=== PATIENT | female | born 1990 | race Caucasian/White ===

== ENCOUNTER 2018-07-08 16:42 | Emergency (ER) | payer OTHER, SELFPAY ==
[2018-07-08 17:17] LABS: BHCG - Serum POSITIVE (NEGATIVE); Pregs Control Bar Appear? YES (CONTROL BAR)
[2018-07-08 17:21] LABS: Prothrombin Time 13.5 SEC (12.0-14.7)
[2018-07-08] MEDS ORDERED: Cyclopentolate 1% Opth Drop 2 ML BOT ONE (17:22)
[2018-07-08 17:29] LABS: ALT (SGPT) 18 U/L (8-55); AST (SGOT) 15 U/L (5-34); Albumin 4.2 g/dL (3.5-5.0); Alkaline Phosphatase 74 U/L (40-150); Anion Gap 13 mmol/L (10-20); BUN (Urea Nitrogen) 11 mg/dL (7.0-18.7); Bilirubin, Total 0.2 mg/dL (0.2-1.2); Calc. Creatinine Clearance 0 mL/min (70-130); Calcium 9.6 mg/dL (7.8-10.44); Carbon Dioxide 21 mmol/L (22-29); Chloride 109 mmol/L (98-107); Estimated GFR-MDRD Greater than 90; Globulin 3.1 g/dL (2.4-3.5); Glucose 100 mg/dL (70-105); Potassium 3.7 mmol/L (3.5-5.1); Protein, Total 7.3 g/dL (6.0-8.3); Sodium 139 mmol/L (136-145)
[2018-07-08 17:33] LABS: #Basophils 0.1 thou/uL (0.0-0.2); #Eosinphils 0.2 thou/uL (0.0-0.7); #Lymphocytes 3.1 thou/uL (1.20-3.40); #Monocytes 0.8 thou/uL (0.11-0.59); #Neutrophils 8.2 thou/uL (1.40-6.50); %Basophils 0.8 % (0.0-1.0); %Eosinophils 1.7 % (0.0-10.0); %Lymphocytes 24.9 % (21.0-51.0); %Monocytes 6.4 % (0.0-10.0); %Neutrophils 66.1 % (42.0-75.0); Hemoglobin 13.6 g/dL (12.0-16.0); Mean Corpuscular HGB CONC 31.9 g/dL (32.0-36.0); Mean Corpuscular Hemoglobin 27.4 pg (27.0-31.0); Mean Corpuscular Volume 85.9 fL (78.0-98.0); Mean Platelet Volume 7.7 fL (7.4-10.4); Platelet Count 316 thou/uL (130-400); RBC Distribution Width 12.3 % (11.5-14.5); Red Blood Cell (RBC) Count 4.95 mill/uL (4.20-5.40); White Blood Cell (WBC) Count 12.4 thou/uL (4.8-10.8)
--- NOTE | 2018-07-08 20:17 | CT ---
CT OF THE BRAIN WITHOUT CONTRAST: 07/08/18 COMPARISON: None. HISTORY: Blurry vision after waking up from a nap. Dizziness and generalized weakness. Pain behind the eyes. TECHNIQUE: Multiple contiguous axial images were obtained in a CT of the brain without contrast. FINDINGS: The brain is normal in morphology and attenuation without focal lesions or confluent areas of infarct ion. There is no evidence of hydrocephalus, intracranial hemorrhage or extra-axial fluid collections. The calvarium and overlying soft tissues are unremarkable. The visualized paranasal sinuses and masto id air cells are well aerated. IMPRESSION: No evidence of acute intracranial abnormality. POS: [facility]
== END 2018-07-08 19:00 | disposition home or self-care (01) ==
LOC: NAV ERS 16:42
DX: H53.8 Other visual disturbances (principal); F90.9 Attention-deficit hyperactivity disorder, unspecified type
CPT/HCPCS: 36416; 70450; 80053; 84702; 84703; 85025; 85610; 86140; 93005; 94760

== ENCOUNTER 2018-12-17 18:55 | Emergency (ER) | payer OTHER, SELFPAY | END 2018-12-17 19:45 | disposition left against medical advice (07) | LOC: NAV ERS 18:55 | DX: O99.89 Other specified diseases and conditions complicating pregnancy, childbirth and the puerperium (principal); R10.30 Lower abdominal pain, unspecified; O99.342 Other mental disorders complicating pregnancy, second trimester; F90.9 Attention-deficit hyperactivity disorder, unspecified type; Z3A.27 27 weeks gestation of pregnancy ==

== ENCOUNTER 2019-03-29 11:59 | Emergency (ER) | payer MEDICAID, OTHER ==
[2019-03-29] MEDS ORDERED: Ondansetron PF 4 MG/2 ML Vial ONE (12:27)
[2019-03-29 12:31] LABS: #Basophils 0.1 thou/uL (0.0-0.2); #Eosinphils 0.2 thou/uL (0.0-0.7); #Lymphocytes 2.6 thou/uL (1.20-3.40); #Monocytes 0.5 thou/uL (0.11-0.59); #Neutrophils 6.9 thou/uL (1.40-6.50); %Basophils 0.9 % (0.0-1.0); %Eosinophils 1.8 % (0.0-10.0); %Lymphocytes 25.4 % (21.0-51.0); %Monocytes 4.6 % (0.0-10.0); %Neutrophils 67.4 % (42.0-75.0); Hemoglobin 13.5 g/dL (12.0-16.0); Mean Corpuscular HGB CONC 30.6 g/dL (32.0-36.0); Mean Corpuscular Hemoglobin 25.3 pg (27.0-31.0); Mean Corpuscular Volume 82.9 fL (78.0-98.0); Mean Platelet Volume 7.7 fL (7.4-10.4); Platelet Count 333 thou/uL (130-400); RBC Distribution Width 13.4 % (11.5-14.5); Red Blood Cell (RBC) Count 5.34 mill/uL (4.20-5.40); White Blood Cell (WBC) Count 10.3 thou/uL (4.8-10.8)
[2019-03-29 12:47] LABS: ALT (SGPT) 18 U/L (8-55); AST (SGOT) 18 U/L (5-34); Albumin 4.3 g/dL (3.5-5.0); Alkaline Phosphatase 104 U/L (40-150); Anion Gap 18 mmol/L (10-20); BUN (Urea Nitrogen) 13 mg/dL (7.0-18.7); Bilirubin, Total 0.3 mg/dL (0.2-1.2); Calc. Creatinine Clearance 0 mL/min (70-130); Calcium 9.8 mg/dL (7.8-10.44); Carbon Dioxide 23 mmol/L (22-29); Chloride 103 mmol/L (98-107); Estimated GFR-MDRD Greater than 90; Globulin 3.3 g/dL (2.4-3.5); Glucose 97 mg/dL (70-105); Lipase 40 U/L (8-78); Magnesium 2.1 mg/dL (1.6-2.6); Potassium 3.8 mmol/L (3.5-5.1); Protein, Total 7.6 g/dL (6.0-8.3); Sodium 140 mmol/L (136-145)
--- NOTE | 2019-03-29 13:09 | RAD ---
TWO VIEWS CHEST: 03/29/19 COMPARISON: None. HISTORY: Chest pain. FINDINGS: There is no pneumothorax or pleural fluid and no focal consolidation or alveolar edema. Heart and med iastinal contours are within normal limits. IMPRESSION: No acute findings. POS: [facility]
== END 2019-03-29 14:06 | disposition home or self-care (01) ==
LOC: NAV ERS 11:59
DX: R07.2 Precordial pain (principal); R00.2 Palpitations; F90.9 Attention-deficit hyperactivity disorder, unspecified type
CPT/HCPCS: 71046; 80053; 83690; 83735; 84484; 85025; 85379; 93005; 94760; 96374; J2405

== ENCOUNTER 2020-05-25 21:25 | Emergency (ER) | payer MEDICAID, OTHER, SELFPAY | END 2020-05-25 22:05 | disposition home or self-care (01) | LOC: NAV ERS 21:25 | DX: S50.862A Insect bite (nonvenomous) of left forearm, initial encounter (principal); F41.9 Anxiety disorder, unspecified; W57.XXXA Bitten or stung by nonvenomous insect and other nonvenomous arthropods, initial encounter | CPT/HCPCS: 99282 ==

== ENCOUNTER 2020-05-27 11:07 | Emergency (ER) | payer SELFPAY ==
[2020-05-27 12:07] LABS: Pregnancy Test - Urine (BHCG) Negative (Negative); Pregu Control Background? CLEAR/WHITE (CLR/WHITE); Pregu Control Bar Appear? YES (CONTROL BAR)
--- NOTE | 2020-05-27 12:20 | RAD ---
EXAM: 3 views of the right ankle HISTORY: Right ankle pain after injury COMPARISON: None FINDINGS: 3 views of the right ankle shows no evidence of acute fracture or dislocation. No soft tiss ue swelling is seen. No degenerative changes are present. IMPRESSION: No evidence of acute osseous abnormality.
--- NOTE | 2020-05-27 12:21 | RAD ---
EXAM: 3 views of the right foot HISTORY: Foot pain COMPARISON: None FINDINGS: 3 views of the right foot shows no evidence of acute fracture or dislocation. No soft tiss ue swelling is seen. No degenerative changes are present. IMPRESSION: No evidence of acute osseous abnormality.
== END 2020-05-27 12:45 | disposition home or self-care (01) ==
LOC: NAV ERS 11:07
DX: S93.401A Sprain of unspecified ligament of right ankle, initial encounter (principal); S93.601A Unspecified sprain of right foot, initial encounter; F41.9 Anxiety disorder, unspecified; X50.1XXA Overexertion from prolonged static or awkward postures, initial encounter
CPT/HCPCS: 81025